=== PATIENT | male | born 1990 | race Caucasian/White ===

== ENCOUNTER 2017-11-09 02:04 | Emergency (ER) | payer SELFPAY ==
[~2017-11-09] VITALS: Ht 175.3 cm; Wt 70.5 kg
[2017-11-09 02:06] VITALS: BP 144/80
[2017-11-09 03:25] LABS: LYMPHOCYTES # (AUTO) 1.4 K/uL (1.0-4.8); MONOCYTES # (AUTO) 0.3 K/uL (0.1-1.0); NEUTROPHILS # (AUTO) 9.2 K/uL (1.8-7.7)
[2017-11-09 03:35] LABS: BASOPHILS % (AUTO) 0.5 % (0.0-2.0); EOSINOPHILS % (AUTO) 0 % (1.0-6.0); HEMATOCRIT 47.3 % (41-53); HEMOGLOBIN 16.4 g/dL (13.5-17.5); LYMPHOCYTES % (AUTO) 12.9 % (22.0-44.0); MEAN CORPUSCULAR HEMOGLOBIN 31.1 pg (26.0-34.0); MEAN CORPUSCULAR HGB CONC 34.6 G/dL (31.0-37.0); MEAN CORPUSCULAR VOLUME 90 fL (80-100); MONOCYTES % (AUTO) 2.7 % (2.0-9.0); NEUTROPHILS % (AUTO) 83.9 % (40.0-70.0); PLATELET COUNT (AUTO) 271 K/uL (150-450); RED BLOOD CELL COUNT(AUTO) 5.27 MIL/uL (4.50-5.90); RED CELL DISTRIBUTION WIDTH 13.7 % (11.5-14.5)
[2017-11-09 03:39] LABS: ANION GAP 13 mmol/L (8-16); CALCIUM, TOTAL 9.2 mg/dL (8.8-10.5); CARBON DIOXIDE 26 mmol/L (22-29); CHLORIDE 106 mmol/L (98-107); CREATININE 0.92 mg/dL (0.60-1.30); GLOMERULAR FILTR. RATE CALC > 60 mL/min (>60); GLUCOSE,RANDOM 116 mg/dL (70-110); POTASSIUM 4.3 mmol/L (3.5-5.1); SODIUM SERUM 145 mmol/L (136-145); UREA NITROGEN, BLOOD 13 mg/dL (7-18)
[2017-11-09 03:45] LABS: ALANINE AMINOTRANSFERASE 25 U/L (12-78); ALBUMIN 4.7 g/dL (3.4-5.0); ALKALINE PHOSPHATASE 78 U/L (46-116); ASPARTATE AMINOTRANSFERASE 20 U/L (15-37); BILIRUBIN,TOTAL 0.4 mg/dL (0.1-1.0); LIPASE 116 U/L (73-393); TOTAL PROTEIN, SERUM 8.3 g/dL (6.4-8.2)
== END 2017-11-09 04:05 | disposition left against medical advice (07) ==
LOC: EMS 02:06
DX: R10.9 Unspecified abdominal pain (principal); R11.2 Nausea with vomiting, unspecified; Z53.21 Procedure and treatment not carried out due to patient leaving prior to being seen by health care provider
CPT/HCPCS: 93005; 99281